=== PATIENT | male | born 1935 | race Caucasian/White ===

== ENCOUNTER → 2016-07-01 | Outpatient (CLI) | payer BC ==
[2016-07-01 13:35] LABS: CALCIUM 9.3 mg/dl (8.5-10.1)
[2016-07-01 13:45] LABS: ALT/SGPT 33 U/L (12-78); AST/SGOT 27 U/L (15-37); BLOOD UREA NITROGEN 21 mg/dl (7-18); BUN/CREATININE RATIO 19.2 (10-20); CARBON DIOXIDE 26 mmol/L (21-32); CHLORIDE 108 mmol/L (98-107); CHOLESTEROL 113 mg/dl (0-200); GLUCOSE 101 mg/dl (70-99); POTASSIUM 4.6 mmol/L (3.5-5.1); SODIUM 142 mmol/L (136-145); TRIGLYCERIDES 114 mg/dl (0-150); URIC ACID 4.8 mg/dl (2.6-7.2); VERY LOW DENSITY LIPOPROT CALC 23 mg/dl
[2016-07-01 13:49] LABS: CHOLESTEROL/HDL RATIO 2.8; HDL CHOLESTEROL 40 mg/dl; LDL CHOLESTEROL CALCULATED 50 mg/dl
== END ==
LOC: C.LABMFLN 10:54
PROVIDERS: ATTEND Family Medicine
DX: I10 Essential (primary) hypertension (principal); E78.00 Pure hypercholesterolemia, unspecified; Z87.442 Personal history of urinary calculi

== ENCOUNTER → 2017-06-30 | Outpatient (CLI) | payer BC ==
[2017-06-30 13:47] LABS: ALT/SGPT 35 U/L (12-78); AST/SGOT 32 U/L (15-37); BLOOD UREA NITROGEN 17 mg/dl (7-18); CALCIUM 9.2 mg/dl (8.5-10.1); CARBON DIOXIDE 27 mmol/L (21-32); CHOLESTEROL 114 mg/dl (0-200); GLUCOSE 98 mg/dl (70-99); POTASSIUM 3.9 mmol/L (3.5-5.1); SODIUM 138 mmol/L (136-145); URIC ACID 3.7 mg/dl (2.6-7.2)
[2017-06-30 13:51] LABS: LDL CHOLESTEROL CALCULATED 45 mg/dl
== END | disposition home or self-care (01) ==
LOC: C.LABMFLN 08:49
PROVIDERS: ATTEND Family Medicine
DX: I10 Essential (primary) hypertension (principal); E78.00 Pure hypercholesterolemia, unspecified; N20.0 Calculus of kidney

== ENCOUNTER → 2017-10-04 | Outpatient (CLI) | payer BC ==
--- NOTE | 2017-10-04 12:04 | DIAGNOSTIC IMAGING REPORT ---
KUB HISTORY: N20.0 Nephrolithiasis COMPARISON: None. FINDINGS: The bowel gas pattern is unremarkable. There are no dilated loops of small bowel to suggest an obstruction. There again noted 2 stones within the left kidney with the largest measuring 5 mm. These are not significantly changed. The right renal shadow is mostly obscured by overlying bowel gas. No definite right renal or ureteral calculi. Calcifications in the deep pelvis likely represent phleboliths. No pneumoperitoneum or pneumatosis. IMPRESSION: Stable left-sided nephrolithiasis. Electronically signed by: Rex Diallo M.D. 10/04/2017 12:02 PM Dictated Date/Time: 10/04/2017 12:01 PM
== END | disposition home or self-care (01) ==
LOC: C.RAD 10:57
PROVIDERS: ATTEND Urology
DX: N20.0 Calculus of kidney (principal)